=== PATIENT | female | born 1970 | race Caucasian/White ===

== ENCOUNTER 2019-02-06 17:47 | Emergency (ER) | payer BC ==
[~2019-02-06] VITALS: Ht 167.6 cm; Wt 59.0 kg
[~2019-02-06 17:47] MED LIST: DENIES
[2019-02-06 18:02] VITALS: BP_SYST 149
[2019-02-06 18:55] LABS: BASOPHILS # (AUTO) 0.1 K/uL (0.0-0.2); BASOPHILS % (AUTO) 2.5 % (0.0-2.0); EOSINOPHILS # (AUTO) 0.1 K/uL (0.0-0.4); HEMATOCRIT 31.5 % (36-48); HEMOGLOBIN 10.2 g/dL (12.0-16.0); LYMPHOCYTES # (AUTO) 1.3 K/uL (1.0-5.5); MEAN CORPUSCULAR HEMOGLOBIN 25 pg (27-31); MEAN CORPUSCULAR HGB CONC 32 % (32-36); MEAN CORPUSCULAR VOLUME 77 fL (79.0-98.0); MONOCYTES # (AUTO) 0.3 K/uL (0.0-1.0); MONOCYTES % (AUTO) 6.6 % (1.7-9.3); NEUTROPHILS # (AUTO) 2.9 K/uL (1.8-7.7); NEUTROPHILS % (AUTO) 60.9 % (40.0-70.0); PLATELET COUNT (AUTO) 272 K/uL (130-430); RED CELL DISTRIBUTION WIDTH 17.8 % (9.0-15.0); WHITE BLOOD COUNT (AUTO) 4.8 K/uL (4.8-10.8)
[2019-02-06 19:09] LABS: CALCIUM 9.1 mg/dL (8.4-11.0); CREATININE 0.88 mg/dL (0.55-1.30)
[2019-02-06 19:15] LABS: ALBUMIN 4.1 g/dL (3.4-4.8); TOTAL BILIRUBIN 0.4 mg/dL (0.0-1.0)
--- NOTE | 2019-02-06 20:00 | NUR ---
Patient to ER bed 5 to gown for evaluation. Side rails up.
--- NOTE | 2019-02-06 20:10 | NUR ---
Pt came to [facility] ED for chest pain for the last 2 days. Reports that she thought it was heart burn and has taken zantac and prilosec with no relief. REports she had a cardiac event 2 yearss ago at [facility]. Reports pain is 5/10 for chest pain and 7/10 for head pain. Reports she has stopped taking her iron supplements 2 days ago and has had severe headaches. Denies SOB, n/v/d or fever. No other complaints/injuries noted. Will cont. to monitor.
[2019-02-06] MEDS ORDERED: MAG HYDROX/AL HYDROX/SIMETH 30 ML, LIDOCAINE VISCOUS 2% 15ML (PO) 10 ML, DICYCLOMINE HC... PO ONE ×3 (20:15)
[2019-02-06] MEDS ORDERED: KETOROLAC TROMETHAMINE 30 MG VIAL IM ONE (20:15)
--- NOTE | 2019-02-06 20:30 | NUR ---
ASHANTI Durham at bedside examining patient.
[2019-02-06 21:08] VITALS: BP_SYST 149
--- NOTE | 2019-02-06 21:08 | NUR ---
Patient given written and verbal discharge instructions and verbalizes understanding. ER MD Dr. Vieira discussed with patient the results and treatment provided. Patient in stable condition. ID arm band removed. Rx of nexium given. Patient educated on pain management and to follow up with PMD. Pain Scale 0/10. Opportunity for questions provided and answered. Medication side effect fact sheet provided.
== END 2019-02-06 21:08 | disposition home or self-care (01) ==
LOC: SED 17:47
DX: K29.70 Gastritis, unspecified, without bleeding (principal); R51 Headache; I10 Essential (primary) hypertension; J45.909 Unspecified asthma, uncomplicated; Z88.0 Allergy status to penicillin
CPT/HCPCS: 36415; 71045; 80053; 82550; 83880; 84484; 85025; 85379; 93005; 96372; 99284; J1885; J2001

== ENCOUNTER 2020-04-21 12:01 | Emergency (ER) | payer BC, SELFPAY ==
[~2020-04-21] VITALS: Ht 167.6 cm; Wt 59.0 kg
[2020-04-21 12:01] VITALS: BP_SYST 126
--- NOTE | 2020-04-21 12:01 | NUR ---
Patient triaged and placed in waiting room. VSS and patient appears in no acute distress at this time. Accompanied by SELF, awaiting available bed, and MD notified of need for MSE.
--- NOTE | 2020-04-21 12:40 | NUR ---
DR HAAS OUTSIDE TO EVALUATE PT.
[2020-04-21 12:49] LABS: EOSINOPHILS # (AUTO) 0.1 K/uL (0.0-0.4); EOSINOPHILS % (AUTO) 2.6 % (0.0-4.0); HEMATOCRIT 36.3 % (36-48); HEMOGLOBIN 11.2 g/dL (12.0-16.0); LYMPHOCYTES # (AUTO) 0.9 K/uL (1.0-5.5); MEAN CORPUSCULAR HEMOGLOBIN 23 pg (27-31); MEAN CORPUSCULAR HGB CONC 31 % (32-36); MEAN CORPUSCULAR VOLUME 74 fL (79.0-98.0); MONOCYTES # (AUTO) 0.2 K/uL (0.0-1.0); MONOCYTES % (AUTO) 4.8 % (1.7-9.3); NEUTROPHILS # (AUTO) 3.5 K/uL (1.8-7.7); NEUTROPHILS % (AUTO) 73.6 % (40.0-70.0); PLATELET COUNT (AUTO) 271 K/uL (130-430); RED BLOOD CELL COUNT(AUTO) 4.94 MIL/uL (4.2-6.2); RED CELL DISTRIBUTION WIDTH 16.5 % (9.0-15.0); WHITE BLOOD COUNT (AUTO) 4.7 K/uL (4.8-10.8)
[2020-04-21 13:07] LABS: CALCIUM 8.9 mg/dL (8.4-11.0); CREATININE 0.72 mg/dL (0.55-1.30)
[2020-04-21 13:13] LABS: ALBUMIN 4.1 g/dL (3.4-4.8); TOTAL BILIRUBIN 0.2 mg/dL (0.0-1.0)
[2020-04-21 13:23] LABS: INR 0.9 (0.8-1.2); PROTHROMBIN TIME 9.5 SECS (9.5-12.5)
[2020-04-21] MEDS ORDERED: DIPH25CA83 PO (14:54)
[2020-04-21] MEDS ORDERED: EPIN0.3P3 IM (14:54)
[2020-04-21 15:00] VITALS: BP_SYST 124
--- NOTE | 2020-04-21 15:00 | NUR ---
Patient given written and verbal discharge instructions and verbalizes understanding. ER MD discussed with patient the results and treatment provided. Patient in stable condition. ID arm band removed. Rx of BENADRYL, EPI-PEN given. Patient educated on pain management and to follow up with PMD. Pain Scale 0/10. Opportunity for questions provided and answered. Medication side effect fact sheet provided.
== END 2020-04-21 15:00 | disposition home or self-care (01) ==
LOC: SED 12:01
DX: L50.8 Other urticaria (principal); R25.2 Cramp and spasm; J45.909 Unspecified asthma, uncomplicated; F41.9 Anxiety disorder, unspecified
CPT/HCPCS: 36415; 80053; 85025; 85379; 85610-TC; 85730-TC; 93971; 99284